=== PATIENT | female | born 2005 | race Asian ===

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

== ENCOUNTER 2023-06-11 06:35 | Emergency (ER) | payer MEDICAID ==
[~2023-06-11] VITALS: Ht 162.6 cm; Wt 41.0 kg
[2023-06-11 06:37] VITALS: TEMP 98.4
[2023-06-11] MEDS ORDERED: LORazepam 1 MG tablet PO ONE (07:40)
[2023-06-11] MEDS ORDERED: LORA-269 PO (08:00)
[2023-06-11 08:30] VITALS: BP 99/67; PULSE 70; RESP 16; O2SAT 98
== END 2023-06-11 08:32 | disposition home or self-care (01) ==
LOC: ER 06:36
DX: F41.9 Anxiety disorder, unspecified (principal); Z87.440 Personal history of urinary (tract) infections
CPT/HCPCS: 93005; 99283

== ENCOUNTER 2023-10-14 14:20 | Emergency (ER) | payer MEDICAID ==
[~2023-10-14 14:20] MED LIST: LORA-269 PO
== END 2023-10-14 15:37 | disposition left against medical advice (07) ==
LOC: ER 14:20
DX: T88.7XXA Unspecified adverse effect of drug or medicament, initial encounter (principal); Z53.21 Procedure and treatment not carried out due to patient leaving prior to being seen by health care provider

== ENCOUNTER 2024-09-28 22:14 | Emergency (ER) | payer MEDICAID ==
[~2024-09-28] VITALS: Ht 160 cm; Wt 44.6 kg
[2024-09-28 22:32] VITALS: BP 137/77; PULSE 110; RESP 24; TEMP 99.5; O2SAT 100
== END 2024-09-29 01:42 | disposition left against medical advice (07) ==
LOC: ER 22:15
DX: Z04.6 Encounter for general psychiatric examination, requested by authority (principal); R07.89 Other chest pain; Z53.21 Procedure and treatment not carried out due to patient leaving prior to being seen by health care provider
CPT/HCPCS: 93005

== ENCOUNTER 2024-10-14 17:47 | Emergency (ER) | payer MEDICAID ==
[~2024-10-14] VITALS: Ht 160 cm; Wt 43.8 kg
[2024-10-14] MEDS ORDERED: LORA-269 PO (19:11)
[2024-10-14 19:16] VITALS: BP 124/76; PULSE 74; RESP 16; TEMP 97.7; O2SAT 99
== END 2024-10-14 19:16 | disposition home or self-care (01) ==
LOC: ER 17:48
DX: F41.9 Anxiety disorder, unspecified (principal); F11.20 Opioid dependence, uncomplicated; Z79.899 Other long term (current) drug therapy; Z87.440 Personal history of urinary (tract) infections
CPT/HCPCS: 99281; 99283

== ENCOUNTER 2024-11-09 18:32 | Emergency (ER) | payer MEDICAID ==
[~2024-11-09] VITALS: Ht 162.6 cm; Wt 46.0 kg
[2024-11-09 18:46] VITALS: BP 128/82; PULSE 98; RESP 15; TEMP 98.6; O2SAT 98
[2024-11-09] MEDS ORDERED: HYDR-3686 PO ×2 (19:19)
[2024-11-09] MEDS: hydrOXYzine 25 MG tablet PO ONE (19:23)
== END 2024-11-09 19:27 | disposition home or self-care (01) ==
LOC: ER 18:33
DX: F41.9 Anxiety disorder, unspecified (principal); Z79.899 Other long term (current) drug therapy
CPT/HCPCS: 99283; Q0177

== ENCOUNTER 2024-11-16 13:57 | Emergency (ER) | payer MEDICAID ==
[~2024-11-16] VITALS: Ht 162.6 cm; Wt 43.6 kg
[~2024-11-16 13:57] MED LIST changes: +HYDR-3686 PO
[2024-11-16] MEDS ORDERED: LORA-268 PO (16:20)
[2024-11-16 17:00] VITALS: BP 116/65; PULSE 75; RESP 16; TEMP 98; O2SAT 100
== END 2024-11-16 17:02 | disposition home or self-care (01) ==
LOC: ER 13:57
DX: F19.980 Other psychoactive substance use, unspecified with psychoactive substance-induced anxiety disorder (principal)
CPT/HCPCS: 99281

== ENCOUNTER 2025-07-21 20:05 | Emergency (ER) | payer MEDICAID ==
[~2025-07-21] VITALS: Ht 160 cm; Wt 52.3 kg
[~2025-07-21 20:05] MED LIST changes: -HYDR-3686 PO
--- NOTE | 2025-07-21 21:07 | RADIOLOGY REPORT ---
CLINICAL INDICATION: FOOT PAIN TECHNIQUE: DI FOOT, COMPLETE (3VW MIN) Comparison: None FINDINGS/IMPRESSION: : There is no evidence of acute fracture or dislocation. Soft tissues are unremarkable.
--- NOTE | 2025-07-21 21:16 | Physician Documentation ---
History of Present Illness ~ Chief Complaint: Foot pain Stated Complaint: FOOTPAIN Time Seen by MD: 20:52 HPI 19-year-old female presents with a complaint of right great toe pain and swelling on the medial aspect at the base of her toe. She denies any recent injury or foreign bodies. Denies any fevers. States she does not have a history of gout. Denies any abscess or drainage Tetanus witin 5 years: No (2016) Medication Reconciliation Allergies: Coded Allergies: No Known Allergies (Unverified , 11/09/24) Scheduled Cephalexin*Monohydrate* (Keflex*), 1 CAP PO QID Lorazepam (Ativan), 1 TAB PO Q8H Scheduled PRN Lorazepam (Ativan), 1 TAB PO Q8H PRN for for anxiety/agitation Lorazepam (Ativan), 1 TAB PO Q8H PRN for anxiety Past Medical History Past Medical History: UTI Past Surgical History: no surgical history Alcohol Use: None Drug Use: none Lives In: Home Review of Systems All Other Systems at this time: Reviewed and Negative ROS As stated above in the HPI, otherwise all systems are reviewed and negative. Physical Exam Vital Signs: Temperature: 98.2, Heart Rate: 65, Respiratory Rate: 16, BP: 102/64, Pulse Oximetry: 99, Weight: 52.270 Oxygen Flow Rate: 0 Physical Exam General: Alert, no apparent distress. Extremities: Normal range of motion, notable erythema in the medial aspect of the right great toe at the base. No swelling on the superior aspect. No evidence of fluctuance. Neurologic: Oriented x4. Psychiatric: Normal mood and affect. Skin: Normal color, warm and dry. No edema, no ecchymosis. Progress Results/Orders Results/Orders Completed Orders - MATTHEW EDWARDS NP Triamcinolone Acet 40mg/Ml Inj (Kenalog- (07/21/25 21:20) Cephalexin Capsule (Keflex Capsule) (07/21/25 21:20) Medications Received in ER Medications (Trade) Dose Ordered Sig/Jean Route PRN Reason Start Time Stop Time Status Last Admin Dose Admin (Keflex capsule) 500 mg ONCE ONCE PO 07/21/25 21:20 07/21/25 21:21 DC 07/21/25 21:41 500 MG Vital Signs 07/21/25 07/21/25 20:16 21:55 Temp 98.2 98.6 Pulse 65 63 Resp 16 18 B/P (MAP) 102/64 107/62 Pulse Ox 99 99 O2 Flow Rate 0 Departure Disposition: 01 HOME / SELF CARE / HOMELESS Impression: Primary Impression: Cellulitis Condition: Stable Discharge Instructions: Cellulitis Referrals: NO PRIMARY CARE PROVIDER (PCP) Prescriptions Cephalexin*Monohydrate* (Keflex*) 500 Mg Capsule 1 CAP PO QID, #40 CAP Prov: MATTHEW EDWARDS [employer] 07/21/25 Education Educated: Patient Educated regarding: diagnosis Signature Scribe Signature: f Attestation: Scribed for Matthew Edwards [employer] by Matthew Edwards - GAURANG . 07/21/25 22:52 MATTHEW EDWARDS NP Jul 21, 2025 21:15
[2025-07-21] MEDS ORDERED: CEPH-585 PO (21:17)
[2025-07-21] MEDS: triamcinolone acetonide 40mg/ml inj IM ONE (21:41)
[2025-07-21 21:55] VITALS: BP 107/62; PULSE 63; RESP 18; TEMP 98.6; O2SAT 99
== END 2025-07-21 21:57 | disposition home or self-care (01) ==
LOC: ER 20:05
DX: L03.115 Cellulitis of right lower limb (principal); Z87.440 Personal history of urinary (tract) infections; Z79.899 Other long term (current) drug therapy
CPT/HCPCS: 73630; 99283; J3301